=== PATIENT | male | born 1950 | race Caucasian/White ===

== ENCOUNTER → 2019-02-06 10:55 | Outpatient (CLI) | payer MEDICARE ==
--- NOTE | ~2019-02-06 | ST ---
PATIENT:INDIA AGGARAWL MEDICAL RECORD: [id number] SEX: M LOCATION:[facility] ORDER #: ADMISSION DATE: 02/06/19 AGE OF PATIENT: 68 REFERRING PHYSICIAN: INTERPRETING PHYSICIAN: TEODORO MATTHEWS MD DATE OF SERVICE: 02/06/2019 INDICATION: Angina, coronary artery disease, abnormal ECG, diabetes, hypertension and hyperlipidemia. The patient was exercised on standard Khurram protocol for 8-1/2 minutes achieving greater than 85% max target heart rate response with 31 mCi of sestamibi injected at peak stress, 10 mCi used previously for rest images. FINDINGS: Gated SPECT reveals preserved ejection fraction at 64% with good wall motioning and thickening and brightening throughout all segments. SPECT imaging Cardiolite was used as myocardial fusion agent. There is reversibility throughout the inferior and apical segments. This is the basal, mid apical inferior segments as well as the apex itself. The degree of reversibility is moderate. The amount of myocardial involved is moderate. OVERALL IMPRESSION: 1. This is an abnormal nuclear stress test with reversibility in for apically. 2. Gated SPECT reveals preserved ejection fraction of greater than 60%. In this patient with ongoing symptomatology, the current scan does suggest the presence of hemodynamically significant coronary artery disease. We would proceed with coronary angiography as followup study. TRANSINT:[id number] Voice Confirmation ID: [id number] DOCUMENT ID: [id number] TEODORO MATTHEWS MD CC: TAYLOR GREEN [id number] DICTATION DATE: 02/08/19 1607 PROFESSIONAL SKATER: 02/09/19 0915 DEP CLI 02/06/19 [place] [address]
== END | disposition home or self-care (01) ==
LOC: D.HCCARDIO 10:55
PROVIDERS: ATTEND Internal Medicine Interventional Cardiology
DX: I20.9 Angina pectoris, unspecified (principal)

== ENCOUNTER 2019-03-21 11:33 | Outpatient (CLI) | payer MEDICARE, OTHER ==
--- NOTE | ~2019-03-21 | HEMODYNAMI ---
PATIENT:INDIA AGGARWAL MEDICAL RECORD: [id number] : 54 LOCATION:[facility] ADMISSION DATE: 03/21/19 Generatedon:03/21/201913:57 Patient name: INDIA AGGARWAL Patient #: [id number] SSN: DO B: 1950 Date of study: 03/21/2019 Page: Of Hemodynamic Procedure Report Patient Data Patient Demographics Procedure consent was obtained First Name: INDIA Gender: Male Last Name: ALESSIA : 1950 [facility] Initial: LINDA Age: 68 year(s) Patient #: [id number] Race: Unknown Additional ID: [id number] Contact details [address]: [address] [place] [address] State: [place] City: [place] Zip code: [address] Past Medical History Allergies Allergen Reaction Date Comments Reported Other allergy 03/21/2019 PRENIDSONE Admission Admission Data Admission Date: 03/21/2019 Admission Time: 11:33 Procedure Procedure Types Cath Procedure Diagnostic Procedure LHC LHC w/Coronaries Procedure Description Procedure Date Procedure Date: 03/21/2019 Procedure Start Time: 13:47 Procedure End Time: 13:56 Procedure Staff Name Function Akhil Marlow MD Performing Physician Julian Rabago RT Monitor Angela Fan RT Scrub Liliane Brand RN Nurse Madi Lorenzo 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 Procedure Data Cath Procedure Fluoroscopy Diagnostic fluoroscopy Total fluoroscopy Time: 1.3 time: 1.3 min min Diagnostic fluoroscopy Total fluoroscopy dose: 433 dose: 433 mGy mGy Contrast Material Contrast Material Type Amount (ml) Isovue 300 35 Entry Location Entry Primary Successful Side Size Upsize Upsize Entry Closure Renteria ccessful Closure Location (Fr) 1 (Fr) 2 (Fr) Remarks Device Remarks Radial Right 6 Fr Mechanical artery Short Compression Estimated blood loss: 5 ml Diagnostic catheters Device Type Used For End Catheter Placement DIAGNOSTIC Elgin 110cm 5 Procedure Fr catheter ([id number]) Procedure Complications No complications Procedure Medications Medication Administration Route Dosage Oxygen etCO2 Nasal cannula 2 l/min Lidocaine 2% added to field 20 Heparin Flush Bag added to field 2 bags (1000units/500ml NS) 0.9% NaCl I.V. 100 ml/hr Versed I.V. 2 mg Fentanyl I.V. 100 mcg Radial Cocktail I.A. 1 syringe (Verapomil 2mg/Nitro 400mcg/Heparin 1500units) Versed I.V. 2 mg Fentanyl I.V. 100 mcg Versed I.V. 0.5 mg Fentanyl I.V. 25 mcg Hemodynamics Rest Heart Rate: 70 (bpm) Pressure Samples Time Site Value (mmHg) Purpose Heart Use Rate(bpm) 13:49 LV 98/19,20 Snapshot 89 13:49 AO 97/75(86) Pullback 79 13:49 LV 98/12,15 Pullback 79 Gradients Valve Time Site 1 Site 2 Mean SEP/DFP Peak To Heart Use (mmHg) (sec/min) Peak Rate (mmHg) (bpm) Aortic 13:49 LV AO 1 10 1 79 98/12,15 97/75(86) Calculations Valve P-P Mean Valve Index Valve Source Name Gradient Area Flow (cm2) Aortic 1 1 1 1 Snapshots Pre Cath Intra NCS Post Cath Vital Signs Time Heart Resp SPO2 etCO2 NIBP (mmHg) Rhythm Pain Sedation Rate (ipm) (%) (mmHg) Status Level (bpm) 13:38:21 69 17 97 32.7 123/85(106) NSR 0 (11) 10(A) , No pain 13:42:23 72 11 100 35.6 136/94(108) NSR 0 (11) 10(A) , No pain 13:46:27 76 13 95 0 107/84(98) NSR 0 (11) 9(A) , No pain 13:51:17 75 12 96 34.9 110/85(105) NSR 0 (11) 9(A) , No pain 13:55:17 75 14 96 40.8 104/88(100) NSR 0 (11) 10(A) , No pain Medications Time Medication Route Dose Verified Delivered Reason Notes Effectiveness by by 13:26:59 Oxygen etCO2 2 l/min Akhil Momin used for Nasal [facility] 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 100 Akhil Momin Per ml/hr St Stanislav alvarez MD 13:43:23 Versed I.V. 2 mg Akhil Momin for sedation [facility] Stanislav Brand RN, MD 13:43:29 Fentanyl I.V. 100 mcg Akhil Momin for sedation [facility] Stanislav Brand RN, MD 13:48:12 Radial Cocktail I.A. 1 Akhil Landaverde for (Verapomil syringe [facility] vasodilation 2mg/Nitro MD LEW 400mcg/Heparin 1500units) 13:48:19 Versed I.V. 2 mg Akhil Momin for sedation [facility] Stanislav Brand RN, MD 13:48:22 Fentanyl I.V. 100 mcg Akhil Momin for sedation [facility] Stanislav Brand RN, MD 13:52:24 Versed I.V. 0.5 mg Akhil Momin for sedation [facility] Stanislav Brand RN, MD 13:52:29 Fentanyl I.V. 25 mcg Akhil Momin for sedation [facility] Stanislav Brand RN, MD Procedure Log Time Note 13:14:07 Signed procedure consent form obtained from patient. 13:14:08 Diagnostic Cath status Elective 13:14:09 Time tracking: Regular hours (M-F 7:00 - 5:00) 13:14:14 Plan of Care:Hemodynamics will remain stable., Cardiac rhythm will remain stable., Comfort level will be maintained., Respiratory function will remain adequate., Patient/ family verbilizes understanding of procedure., Procedure tolerated without complication., Recovers from procedure without complications.. 13:14:21 H&P Date Dictated: 03/06/2019 Within 30 days and on chart., H&P Addendum completed by physician on day of procedure. (MUST COMPLETE FOR ALL OUTPATIENTS). 13:14:38 Patient allergic to Other allergyPRENIDSONE 13:20:46 Madi Lorenzo RT(R) sent for patient. Start room use. 13:26:59 Oxygen 2 l/min etCO2 Nasal cannula was administered by Liliane Brand RN; used for procedure; 13:27:06 Lidocaine 2% 20ml vial added to field was administered by Akhil Marlow MD; for local anesthetic; 13:27:13 Heparin Flush Bag (1000units/500ml NS) 2 bags added to field was administered by Akhil Marlow MD; used for procedure; 13:27:21 0.9% NaCl 100 ml/hr I.V. was administered by Liliane Brand RN; Per physician; 13:28:08 Patient received from Pre/Post Procedure Room to CCL 2 Alert and oriented. Tansferred to table in Supine position. 13:28:09 Warm blankets applied, and moy hugger turned on for patient comfort. 13:28:10 Correct patient and procedure confirmed by team. 13:28:10 ECG and BP/O2 sat monitors applied to patient. 13:37:20 Vital chart was started 13:38:24 Baseline sample Acquired. 13:38:27 Rhythm: sinus rhythm 13:38:28 Full Disclosure recording started 13:38:29 Pre-procedure instructions explained to patient. 13:38:29 Pre-op teaching completed and patient verbalized understanding. 13:38:32 Family in waiting room. 13:38:34 Patient NPO since Midnight. 13:38:36 Is the patient allergic to Iodine/contrast media? No. 13:38:40 Is patient on blood thinner?No 13:38:45 Patient diabetic? Yes. 13:38:46 If diabetic: On Metformin? Yes 13:38:52 If on Metformin: Last Dose? 03/20/2019 13:39:13 ----Pre-sedation anethsthesia assessment.---- 13:39:29 Previous problem with sedation/anesthesia? No ? 13:39:30 Snore? Yes 13:39:32 Sleep apnea? No 13:39:33 Deviated septum? No 13:39:34 Opens mouth fully? No 13:39:35 Sticks out tongue? Yes 13:39:37 Airway obstruction? No ? 13:39:39 Dentures? No ? 13:39:41 Pre procedure: right dorsailis pedis pulse 2+ Normal; easily identifiable; not easily obliterated 13:39:47 Modified Kaushal's test Ulnar < 7 seconds 13:39:49 Patient pain scale 0/10 ?. 13:39:52 IV patent on arrival in left antecubital with 0.9% NaCl at [facility]. 13:39:57 Lab results completed and on chart. 13:40:00 Right Radial & Right Groin area was prepped with chlora-prep and draped in sterile fashion 13:40:01 Alarms reviewed by R. N. 13:40:01 Sharps counted by scrub and verified by R.N. 13:40:02 Physician arrived 13:42:55 --------ALL STOP TIME OUT------ 13:42:55 Final Timeout: patient, procedure, and site verified with staff and physician. All members of the team are in agreement. 13:42:57 Right Radial & Right Groin site verified by team. 13:42:59 Maximum allowable Isovue 300 dose 300ml. Physician notified. (300ml for normal creatinines. For patients with creatinine of 1.7 or higher multiply weight(kg) x 5 divided by creatinine.) 13:43:03 Fire Safety Assessment: A--An alcohol-based skin anteseptic being used preoperatively., C--Open oxygen or nitrous oxide is being used., D--An ESU, laser, or fiber-optic light is being used. 13:43:05 Physical assessment completed. ASA score P 2 - A patient with mild systemic disease as per Akhil Marlow MD. 13:43:08 Sedation plan: IV Moderate Sedation Medication:Versed, Fentanyl 13:43:10 Use device set Radial Dx or PCI 13:43:11 ACIST Syringe (17434) opened to sterile field. 13:43:11 Medline Cath Pack ([id number]) opened to sterile field. 13:43:12 Bag Decanter () opened to sterile field. 13:43:12 ACIST Hand Control (64501) opened to sterile field. 13:43:13 ACIST Manifold (50196) opened to sterile field. 13:43:13 Tegaderm 4 x 4 (1626W) opened to sterile field. 13:43:14 MBrace Wrist Support ([id number]) opened to sterile field. 13:43:16 DIAGNOSTIC WIRE .035 260cm J wire (860286) opened to sterile field. 13:43:17 SHEATH 6FR Slender (49-6923) opened to sterile field. 13:43:23 Versed 2 mg I.V. was administered by Liliane Brand RN; for sedation; 13:43:29 Fentanyl 100 mcg I.V. was administered by Liliane Brand RN; for sedation; 13:47:16 Procedure started. 13:47:17 Zero performed for pressure channel P1 13:47:22 Local anesthetic to right radial artery with Lidocaine 2% by Akhil Marlow MD.INITIAL ACCESS ONLY 13:47:29 A 6 Fr Short sheath was inserted into the Right Radial artery 13:47:52 A DIAGNOSTIC Elgin 110cm 5 Fr catheter ([id number]) was advanced over the wire and used for Procedure. 13:48:12 Radial Cocktail (Verapomil 2mg/Nitro 400mcg/Heparin 1500units) 1 syringe I.A. was administered by Akhil Marlow MD; for vasodilation; 13:48:19 Versed 2 mg I.V. was administered by Liliane Brand RN; for sedation; :48:22 Fentanyl 100 mcg I.V. was administered by Liliane Brand RN; for sedation; 13:49:23 LV gram done using MASSEY 13:49:28 Injector settings: Ml/sec: 5, Volume: 15, 13:49:36 LV hemodynamics recorded. 13:49:40 EF : 50 % 13:49:47 LCA angiography performed. 13:51:33 RCA angiography performed. 13:52:09 Catheter removed. 13:52:24 Versed 0.5 mg I.V. was administered by Liliane Brand RN; for sedation; 13:52:29 Fentanyl 25 mcg I.V. was administered by Liliane Brand RN; for sedation; 13:52:56 TR BAND Standard ([id number]) opened to sterile field. 13:53:09 Sheath removed intact; hemostasis achieved with Mechanical Compression to the Right Radial artery. 13:53:11 Procedure ended.(Physican Out) 13:53:19 Fluoroscopy time 01.30 minutes. 13:53:22 Fluoroscopy dose: 433 mGy 13:53:22 Flurop Dose total: 433 13:53:24 Contrast amount:Isovue 300 35ml. 13:53:39 Sharps counted by scrub and verified by R.N. 13:53:43 TR band inflated with 12cc of air. 13:53:44 Insertion/operative site no bleeding no hematoma. 13:53:49 Post right radial artery:stable, soft, clean and dry 13:53:50 Post Procedure Pulses reassessed and unchanged 13:55:31 Post-procedure physical assessment completed. ASA score P 2 - A patient with mild systemic disease as per Akhil Marlow MD. 13:55:54 Post procedure rhythm: sinus rhythm 13:55:58 Estimated blood loss: 5 ml 13:56:00 Post procedure instruction explained to patient.Patient verbalizes understanding. 13:56:00 Patient needs reinforcement of post procedure teaching. 13:56:28 Procedure and supply charges have been captured, reviewed, submitted and are correct. 13:56:30 Procedure Complication : No complications 13:56:31 Vital chart was stopped 13:56:32 See physician's report for complete and final results. 13:56:33 Report given to Pre/Post Procedure Room. 13:56:35 Patient transfered to Pre/Post Procedure Room with Stretcher. 13:56:36 Procedure ended. 13:56:36 Full Disclosure recording stopped 13:56:40 End room use (Document Last) Device Usage Item Name Manufacture Quantity Catalog Hospital Part Current Minimal Lot# / Number Charge Number Stock Stock Serial# Code ACIST Acist 1 07701 911253 806149 807190 20 Syringe Medical (20029) Systems Inc Medline Medline 1 [id number] 556631 10196 282873 5 Cath Pack ([id number]) Bag Microtek 1 2001S 805625 49503 650253 5 Decanter Medical Inc. (2001S) ACIST Hand Acist 1 69057 240539 109982 114059 5 Control Medical (74489) Systems Inc ACIST Acist 1 96689 198558 529766 092222 5 Manifold Medical (10247) Systems Inc Tegaderm 4 3M 1 1626W 332247 330683 834279 5 x 4 (1626W) MBrace Advanced 1 140-0250-00 015263 16298 833501 5 Wrist Vascular Support Dynamics ([id number]) DIAGNOSTIC [facility] [place] 1 778778 229095 053001 062958 30 WIRE .035 260cm J wire (775681) SHEATH 6FR Terumo 1 [id number] 052320 687868 150751 5 Slender (80-1060) DIAGNOSTIC Terumo 1 40-5267 139689 981847 590764 5 Elgin 110cm 5 Fr catheter (230154) TR BAND Terumo 1 SOL79-SOX 534603 937253 080765 40 Standard ([id number]) Signature Audit Louise Stage Time Signature Unsigned Intra-Procedure 03/21/2019 Julian Rabago 1:57:07 PM RT(R) Signatures Monitor : Julian Rabago RT Signature : Date : Time : [address] [place] [address]
[2019-03-21] MEDS ORDERED: BASAGLAR K100 UNIT/1 SC (11:58)
[2019-03-21] MEDS ORDERED: PRINIVIL10 MG PO (11:59)
[2019-03-21] MEDS ORDERED: KLONOPIN1 MG PO (11:59)
[2019-03-21 12:09] VITALS: BP 129/85; BMI 27.9
[2019-03-21] MEDS ORDERED: AMBIEN10 MG PO (12:18)
[2019-03-21] MEDS ORDERED: COREG12.5 MG PO (12:18)
[2019-03-21] MEDS ORDERED: PLAVIX75 MG PO (12:19)
[2019-03-21] MEDS ORDERED: CRESTOR5 MG PO (12:19)
[2019-03-21] MEDS ORDERED: BENTYL10 MG PO (12:20)
[2019-03-21] MEDS ORDERED: FISH OIL 1,0001 CA1 PO (12:20)
[2019-03-21] MEDS ORDERED: GLIPIZIDE10 MG PO (12:20)
[2019-03-21] MEDS ORDERED: GLUCOPHAGE500 MG PO (12:21)
[2019-03-21 12:30] LABS: ANION GAP 12.1 mmol/L (8-16); CALCIUM 8.7 mg/dL (8.5-10.1); CARBON DIOXIDE 25.5 mmol/L (21.0-32.0); CREATININE - SERUM 1.1 mg/dL (0.6-1.3); POTASSIUM - SERUM 3.6 mmol/L (3.5-5.1)
[2019-03-21 12:47] LABS: BASOPHILS 0.2 % (0-2); EOSINOPHILS 2.3 % (0-7); HEMATOCRIT 41.8 % (42.0-54.0); HEMOGLOBIN 15.5 g/dL (13.5-17.5); LYMPHOCYTES 30.6 % (15-50); MCH 33.3 pg (26.0-34.0); MCHC 37.1 g/dL (31.0-37.0); MCV 89.7 fL (80.0-100.0); MEAN PLATELET VOLUME 11.6 fL (7.4-10.4); MONOCYTES 5.3 % (2-11); NEUTROPHILS 61.6 % (40-80); PLATELET COUNT 100 10x3/uL (130-400); RBC 4.66 10x6/uL (4.20-6.10); RDW 12.2 % (11.5-14.5); WBC 4.4 10x3/uL (4.8-10.8)
--- NOTE | 2019-03-21 14:10 | NUR ---
PATIENT RETURNED TO [facility]. VSS ON CM. FAMILY PRESENT AT BEDSIDE, PHYSICIAN AT BEDSIDE TO UPDATE PATIENT AND FAMILY. NO C/O PAIN, NUMBNESS, OR TINGLING.
--- NOTE | 2019-03-21 14:24 | NUR ---
PATIENT INTERMITTENTLY RESTING, VSS ON ROOM AIR. RIGHT TR BAND IN PLACE, NO S/S OF BLEEDING OR HEMATOMA. NO C/O PAIN, NUMBNESS, OR TINGLING. TOLERATING PO FLUIDS, NO N/V.
--- NOTE | 2019-03-21 14:55 | NUR ---
PATIENT AWAKE, SITTING UP IN BED. VSS ON ROOM AIR. NO C/O PAIN, NUMBNESS, OR TINGLING. FINISHED SANDWICH, NO N/V. BEGIN AIR REMOVAL PROTOCOL FOR RIGHT RADIAL TR BAND, NO S/S OF BLEEDING OR HEMATOMA.
--- NOTE | 2019-03-21 15:25 | NUR ---
4CC OF AIR REMOVED FROM TR BAND, NO S/S OF BLEEDING OR HEAMTOMA. DRESSING APPLIED TO RIGHT RADIAL SITE. VSS ON ROOM AIR. NO C/O PAIN, NUMBNESS OR TINGLING. IV REMOVED.
--- NOTE | 2019-03-21 15:28 | NUR ---
NORCO 10 GIVEN PER ORDER FOR BACK PAIN. PT TOLERATING FLUIDS W/O NAUSEA. R GROIN SOFT, DRESSING CDI NO BLEEDING OR HEMATOMA NOTED. CALL LIGHT IN REACH AND AT BEDSIDE.
--- NOTE | 2019-03-21 15:45 | NUR ---
EDUCATION REGARDING DISCHARGE INSTRUCTTIONS GIVEN TO PATIENT AND DAUGHTER, ALL QUESTIONS ANSWERED. VSS ON ROOM AIR. RIGHT RADIAL DRESSING IS CDI, NO S/S OF BLEEDING OR HEMATOMA.
--- NOTE | 2019-03-21 15:50 | NUR ---
PATIENT INFORMED OF CARDIOTHORACIC FOLLOW UP, GIVEN BOOKLET OF INFORMATION AND DR. GUPTA'S CARD.
--- NOTE | 2019-03-21 15:55 | NUR ---
PATIENT TRANSPORTED VIA WHEELCHAIR TO CAR WITH FAMILY DRIVING, ALL BELONGINGS SENT WITH PATIENT.
--- NOTE | 2019-03-26 08:49 | OP ---
PATIENT NAME: INDIA AGGARWAL MEDICAL RECORD: [id number] :54 LOCATION:D.CAT ADMISSION DATE: SURGEON: JOE BRADEN MD DATE OF OPERATION: 03/21/2019 PROCEDURES: Left heart catheterization, selective coronary angiography, right radial approach. CATHETERS: [place] catheter, radial sheath. The procedure was well tolerated. The patient returned to hurd. Sheath was removed. TR band was placed. FINDINGS: Left ventriculography in 30-degree MASSEY view: LV appears to be normal. Wall motion and LV function 50%. CORONARY ANATOMY: LEFT MAIN: Left main is free of disease. LAD: Has severe diffuse in-stent re-stenosis up to 90% or better at his greatest portion with good target distally. This does involve the first diagonal, which has about 80% stenosis with good target distally. RIGHT CORONARY ARTERY: Severely diffusely diseased at 80% to 90% most critical, better than 90% at the midportion with good target distally. IMPRESSION: Multivessel coronary artery disease, severe diffuse disease, best long-term revascularization would best be served by a coronary bypass grafting. CT surgery consulted for that purpose. TRANSINT:[id number] Voice Confirmation ID: [id number] DOCUMENT ID: [id number] JOE BRADEN MD at 0849 CC: [id number] DICTATION DATE: 03/21/19 1359 CASING TESTER: 03/21/19 1829 DEP CLI 03/21/19 [place] [address]
== END 2019-03-21 15:55 ==
LOC: D.CATH 11:33
PROVIDERS: ATTEND Internal Medicine Interventional Cardiology
DX: I25.119 Atherosclerotic heart disease of native coronary artery with unspecified angina pectoris (principal); T82.855A Stenosis of coronary artery stent, initial encounter; Z01.812 Encounter for preprocedural laboratory examination

== ENCOUNTER 2019-04-11 11:46 | Outpatient (CLI) | payer MEDICARE, OTHER ==
[~2019-04-11] VITALS: Ht 180.3 cm; Wt 90.9 kg
--- NOTE | ~2019-04-11 | OP ---
PATIENT NAME: INDIA AGGARWAL MEDICAL RECORD: [id number] :54 LOCATION:D.CAT ADMISSION DATE: SURGEON: JOE BRADEN MD DATE OF OPERATION: 04/11/2019 PROCEDURE: PTCA and stent to LAD. FINDINGS: After a 6-Croatian sheath was placed in the right femoral artery, XB LAD guide catheter provided good guide catheter support followed by a 300 cm Whisper wire placed across the severely diffusely diseased LAD down this portion of the vessel. Pre-deployment balloon was a 3.0 x 20 mm Kenedy balloon up and down the long stenosis. Stents were then placed in the following fashion; a 3 5 x 38 and a 3.5 x 30, both Ramirez drug-eluting stents up to 14 atmospheres. Final angiography shows excellent resolution with still one area of significant residual; therefore, a 3.5 noncompliant balloon was placed in this area and inflated up to 20 atmospheres for 45 seconds. Final angiography shows excellent resolution of 90+ percent stenosis with no significant residual. LISA flow was 3 throughout the procedure. Sheath was closed with ExoSeal device. TRANSINT:[id number] Voice Confirmation ID: [id number] DOCUMENT ID: [id number] JOE BRADEN MD CC: [id number] DICTATION DATE: 04/11/19 1511 REPLANTER: 04/11/19 1823 [facility] [address] [place] [address]
--- NOTE | ~2019-04-11 | HEMODYNAMI ---
PATIENT:INDIA AGGARWAL MEDICAL RECORD: [id number] : 54 LOCATION:D.CAT ADMISSION DATE: 04/11/19 Generatedon:04/11/201915:12 Patient name: INDIA AGGARWAL Patient #: [id number] SSN: DO B: 1950 Date of study: 04/11/2019 Page: Of Hemodynamic Procedure Report Patient Data Patient Demographics Procedure consent was obtained First Name: INDIA Gender: Male Last Name: ALESSIA : 1950 [facility] Initial: LINDA Age: 68 year(s) Patient #: [id number] Race: Unknown Additional ID: [id number] Contact details Address: [address] [place] [address] State: [place] City: [place] Zip code: [address] Past Medical History Allergies Allergen Reaction Date Comments Reported Other allergy 03/21/2019 PRENIDSONE Admission Admission Data Admission Date: 04/11/2019 Admission Time: 11:46 Procedure Procedure Types Cath Procedure Diagnostic Procedure Sedation Charges Moderate Sedation up to 15 minutes PCI Procedure Coronary Stent Coronary Stent Initial Procedure Description Procedure Date Procedure Date: 04/11/2019 Procedure Start Time: 14:45 Procedure End Time: 15:10 Procedure Staff Name Function Akhil Marlow MD Performing Physician Angela Fan RT Monitor Suzy Thakkar RT Scrub Haley Anderson RN Nurse Procedure Data Cath Procedure Fluoroscopy Diagnostic fluoroscopy Total fluoroscopy Time: 8.3 time: 8.3 min min Diagnostic fluoroscopy Total fluoroscopy dose: 980 dose: 980 mGy mGy Contrast Material Contrast Material Type Amount (ml) Isovue 300 79 Entry Location Entry Primary Successful Side Size Upsize Upsize Entry Closure Succes sful Closure Location (Fr) 1 (Fr) 2 (Fr) Remarks Device Remarks Femoral Right 6 Fr Exoseal artery Short Estimated blood loss: 10 ml Procedure Complications No complications Procedure Medications Medication Administration Route Dosage 0.9% NaCl I.V. 100 ml/hr Oxygen etCO2 Nasal cannula 2 l/min Lidocaine 2% added to field 20 Heparin Flush Bag added to field 2 bags (1000units/500ml NS) Versed I.V. 2 mg Fentanyl I.V. 50 mcg Versed I.V. 2 mg Fentanyl I.V. 50 mcg Versed I.V. 2 mg Fentanyl I.V. 50 mcg Heparin Bolus I.V. 5000 units Fentanyl I.V. 50 mcg Versed I.V. 2 mg Hemodynamics Rest Heart Rate: 74 (bpm) Snapshots Pre Cath Intra NCS Post Cath Vital Signs Time Heart Resp SPO2 etCO2 NIBP (mmHg) Rhythm Pain Sedation Rate (ipm) (%) (mmHg) Status Level (bpm) 14:20:38 73 10 97 32.2 142/87(109) NSR 0 (11) 10(A) , No pain 14:24:54 75 12 91 26.1 121/83(102) NSR 0 (11) 10(A) , No pain 14:29:10 73 10 78 27.8 126/84(105) NSR 0 (11) 10(A) , No pain 14:33:24 74 11 97 35.9 136/88(108) NSR 0 (11) 10(A) , No pain 14:37:40 83 16 98 31.4 136/93(114) NSR 0 (11) 10(A) , No pain 14:41:52 75 19 96 35.2 122/89(98) NSR 0 (11) 10(A) , No pain 14:46:08 82 15 97 36.6 129/79(113) NSR 0 (11) 10(A) , No pain 14:50:24 77 18 95 37.4 126/87(103) NSR 0 (11) 10(A) , No pain 14:54:40 80 10 95 39.6 130/80(112) NSR 0 (11) 9(A) , No pain 14:58:54 80 16 95 40.4 125/83(115) NSR 0 (11) 9(A) , No pain 15:03:10 81 18 96 37.4 124/82(108) NSR 0 (11) 10(A) , No pain 15:07:24 67 10 96 44.1 123/86(105) NSR 0 (11) 10(A) , No pain Medications Time Medication Route Dose Verified Delivered Reason Notes Effectiveness by by 14:27:51 0.9% NaCl I.V. 100 Akhil Haley used for ml/hr [place] Justin procedure MD JO 14:27:59 Oxygen etCO2 2 Akhil Haley used for Nasal l/min [place] Justin procedure cannula MD JO 14:28:03 Lidocaine 2% added 20ml Akhil Hardyory for local to vial [facility] anesthetic field MD LEW 14:28:07 Heparin Flush added 2 Akhil Akhil used for Bag to bags [facility] procedure (1000units/500ml field MD LEW NS) 14:37:40 Versed I.V. 2 mg Akhil Haley for sedation [facility] MD, RN 14:37:45 Fentanyl I.V. 50 Akhil Haley for sedation mcg [facility] Anderson MD, RN 14:42:22 Versed I.V. 2 mg Akhil Haley for sedation [facility] MD, RN 14:42:33 Fentanyl I.V. 50 Akhil Haley for sedation mcg [facility]av Anderson MD, RN 14:47:05 Fentanyl I.V. 50 Akhil Haley for sedation mcg [facility] Anderson MD, RN 14:47:40 Versed I.V. 2 mg Akhil Haley for sedation [facility] MD, RN 14:50:35 Heparin Bolus I.V. 5000 Akhil Haley for verif ied units [facility] anticoagulation with Dr. MD OJ Oel[place]in 14:52:21 Versed I.V. 2 mg Akhil Haley for sedation [facility] MD, RN 14:52:43 Fentanyl I.V. 50 Akhil Haley for sedation [facility]av Anderson MD financial sales advisor Log Time Note 13:41:05 Informed consent obtained and on chart 13:41:08 Diagnostic Cath Status : Elective 13:41:29 Time tracking: Regular hours (M-F 7:00 - 5:00) 13:41:36 Plan of Care:Hemodynamics will remain stable., Cardiac rhythm will remain stable., Comfort level will be maintained., Respiratory function will remain adequate., Patient/ family verbilizes understanding of procedure., Procedure tolerated without complication., Recovers from procedure without complications.. 14:08:51 Haley Anderson RN sent for patient. Start room use. 14:14:21 Patient received from Pre/Post Procedure Room to CCL 1 Alert and oriented. Tansferred to table in Supine position. 14:14:22 Warm blankets applied, and moy hugger turned on for patient comfort. 14:14:22 Correct patient and procedure confirmed by team. 14:14:23 ECG and BP/O2 sat monitors applied to patient. 14:19:21 Vital chart was started 14:19:22 Baseline sample Acquired. 14:19:27 Rhythm: sinus rhythm 14:19:29 Full Disclosure recording started 14:19:35 H&P Date Dictated: 04/11/2019 Within 30 days and on chart., H&P Addendum completed by physician on day of procedure. (MUST COMPLETE FOR ALL OUTPATIENTS). 14:19:36 Pre-procedure instructions explained to patient. 14:19:37 Pre-op teaching completed and patient verbalized understanding. 14:19:38 Family in waiting room. 14:19:39 Patient NPO since Midnight. 14:19:41 Is the patient allergic to Iodine/contrast media? No. 14:19:43 Was the patient premedicated? No 14:19:43 Is patient on blood thinner?Yes 14:19:46 ACC The patient was administered the following blood thiners within the last 24 hours: ACCPlavix 14:19:48 Patient diabetic? Yes. 14:19:48 If diabetic: On Metformin? Yes 14:20:00 If on Metformin: Last Dose? 04/06/2019 14:20:11 Previous problem with sedation/anesthesia? No ? 14:20:34 Snore? Yes 14:20:35 Sleep apnea? Yes 14:20:36 Deviated septum? No 14:20:37 Opens mouth fully? Yes 14:20:37 Sticks out tongue? Yes 14:20:39 Airway obstruction? No ? 14:20:42 Dentures? No ? 14:20:47 Pre procedure: right dorsailis pedis pulse 2+ Normal; easily identifiable; not easily obliterated 14:20:50 Pre procedure: left dorsailis pedis pulse 2+ Normal; easily identifiable; not easily obliterated 14:20:53 Patient pain scale 0/10 ?. 14:21:06 IV patent on arrival in left forearm with 0.9% NaCl at [facility]. 14:21:10 Lab results completed and on chart. 14:21:20 Right groin area was prepped with chlora-prep and draped in sterile fashion 14:21:21 Alarms reviewed by R. N. 14:21:22 Sharps counted by scrub and verified by R.N. 14:24:55 Use device set CATH PACK 14:24:57 ACIST Syringe (11421) opened to sterile field. 14:24:57 ACIST Hand Control (71258) opened to sterile field. 14:24:57 ACIST Manifold (46155) opened to sterile field. 14:24:58 Bag Decanter (2002S) opened to sterile field. 14:24:58 Medline Cath Pack ([id number]) opened to sterile field. 14:24:59 DIAGNOSTIC WIRE .035 260cm J wire (324326) opened to sterile field. 14:25:10 SHEATH 6FR Lak[place] (OKE197) opened to sterile field. 14:25:11 INFLATOR Merit BasixCompak (MM1322) opened to sterile field. 14:25:11 WHISPER 300cm guide wire ([id number]) opened to sterile field. 14:27:51 0.9% NaCl 100 ml/hr I.V. was administered by Haley Anderson RN; used for procedure; 14:27:59 Oxygen 2 l/min etCO2 Nasal cannula was administered by Haley Anderson RN; used for procedure; 14:28:03 Lidocaine 2% 20ml vial added to field was administered by Akhil Marlow MD; for local anesthetic; 14:28:07 Heparin Flush Bag (1000units/500ml NS) 2 bags added to field was administered by Akhil Marlow MD; used for procedure; 14:28:51 Baseline sample Acquired. 14:29:06 GUIDE 6FR XBLAD 3.5 catheter ([id number]) opened to sterile field. 14:32:44 Zero performed for pressure channel P1 14:33:19 Zero performed for pressure channel P1 14:36:42 --------ALL STOP TIME OUT------ 14:36:43 Final Timeout: patient, procedure, and site verified with staff and physician. All members of the team are in agreement. 14:36:44 Right groin site verified by team. 14:36:47 Maximum allowable Isovue 300 dose 300ml. Physician notified. (300ml for normal creatinines. For patients with creatinine of 1.7 or higher multiply weight(kg) x 5 divided by creatinine.) 14:36:50 Fire Safety Assessment: A--An alcohol-based skin anteseptic being used preoperatively., C--Open oxygen or nitrous oxide is being used., D--An ESU, laser, or fiber-optic light is being used. 14:36:53 Physical assessment completed. ASA score P 2 - A patient with mild systemic disease as per Akhil Marlow MD. 14:36:56 Sedation plan: IV Moderate Sedation Medication:Versed, Fentanyl 14:37:40 Versed 2 mg I.V. was administered by Haley Anderson RN; for sedation; 14:37:45 Fentanyl 50 mcg I.V. was administered by Haley Anderson RN; for sedation; 14:42:22 Versed 2 mg I.V. was administered by Haley Anderson RN; for sedation; 14:42:33 Fentanyl 50 mcg I.V. was administered by Haley Anderson RN; for sedation; 14:45:42 Procedure started. 14:45:58 Local anesthetic to right femoral artery with Lidocaine 2% by Akhil Marlow MD.INITIAL ACCESS ONLY 14:46:50 A 6 Fr Short sheath was inserted into the Right Femoral artery 14:47:05 Fentanyl 50 mcg I.V. was administered by Haley Anderson RN; for sedation; 14:47:34 Zero performed for pressure channel P1 14:47:38 Zero performed for pressure channel P1 14:47:40 Versed 2 mg I.V. was administered by Haley Anderson RN; for sedation; 14:47:47 Zero performed for pressure channel P1 14:47:52 Zero performed for pressure channel P1 14:48:02 6 Fr XBLAD 3.5 guide catheter was inserted over the wire 14:49:42 WHISPER 300 wire advanced. 14:50:35 Heparin Bolus 5000 units I.V. was administered by Haley Anderson RN; for anticoagulation; verified with Dr. Guthrie 14:51:04 Wire advanced across lesion. 14:51:53 Inflate balloon Inflation number: 1 A EMERGE OTW 3.0 x 20 balloon ([id number]) was prepped and advanced across the Mid LAD, then inflated to 10 SHEEBA for 0:15 (min:sec). 14:52:20 Inflation number: 2 The EMERGE OTW 3.0 x 20 balloon ([id number]) was reinflated across the Mid LAD, to 10 SHEEBA for 0:15 (min:sec). 14:52:21 Versed 2 mg I.V. was administered by Haley Anderson RN; for sedation; 14:52:41 Inflation number: 3 The EMERGE OTW 3.0 x 20 balloon ([id number]) was reinflated across the Mid LAD, to 10 SHEEBA for 0:15 (min:sec). 14:52:43 Fentanyl 50 mcg I.V. was administered by Haley Anderson RN; for sedation; 14:53:32 Inflation number: 4 The EMERGE OTW 3.0 x 20 balloon ([id number]) was reinflated across the Mid LAD, to 12 SHEEBA for 0:15 (min:sec). 14:53:55 Inflation number: 5 The EMERGE OTW 3.0 x 20 balloon ([id number]) was reinflated across the Mid LAD, to 12 SHEEBA for 0:15 (min:sec). 14:54:12 Balloon removed over the wire. 14:57:08 Place stent Inflation Number: 6 A YULIYA OTW 3.5 x 38 stent ([id number]) was prepped and advanced across the Mid LAD. The stent was deployed at 14 SHEEBA for 0:20 (min:sec). 14:58:25 Stent catheter was removed intact over wire. 15:00:48 Place stent Inflation Number: 7 A YULIYA OTW 3.5 x 30 stent ([id number]) was prepped and advanced across the Mid LAD. The stent was deployed at 14 SHEEBA for 0:20 (min:sec). 15:00:56 Stent catheter was removed intact over wire. 15:04:18 Inflate balloon Inflation number: 8 A NC EUPHORA 3.5 x 12 balloon ([id number]) was prepped and advanced across the Mid LAD, then inflated to 16 SHEEBA for 0:20 (min:sec). 15:04:36 Balloon removed over the wire. 15:04:51 Wire removed. 15:04:51 Guide catheter removed. 15:05:19 EXOSEAL 6Fr (EX600) opened to sterile field. 15:05:47 Sheath removed intact; hemostasis achieved with Exoseal to the Right Femoral artery. 15:05:50 Procedure ended.(Physican Out) 15:08:41 Fluoroscopy time 08.30 minutes. 15:08:46 Flurop Dose total: 980 15:08:46 Fluoroscopy dose: 980 mGy 15:08:50 Contrast amount:Isovue 300 79ml. 15:08:51 Sharps counted by scrub and verified by R.N. 15:08:54 Post-op/insertion site Right Femoral artery dressed using a 4 x 4 and Tegaderm. 15:09:02 Post-procedure physical assessment completed. ASA score P 2 - A patient with mild systemic disease as per Akhil Marlow MD. 15:09:04 Post-procedure physical assessment completed. ASA score P 3 - A patient with severe systemic disease as per Akhil Marlow MD. 15:09:08 Post procedure rhythm: sinus rhythm 15:09:12 Estimated blood loss: 10 ml 15:09:13 Post procedure instruction explained to patient.Patient verbalizes understanding. 15:09:14 Patient needs reinforcement of post procedure teaching. 15:09:48 Procedure type changed to Cath procedure, Diagnostic procedure, Sedation Charges, Moderate Sedation up to 15 minutes, PCI procedure, Coronary Stent, Coronary Stent Initial 15:10:08 Procedure and supply charges have been captured, reviewed, submitted and are correct. 15:10:10 Procedure Complication : No complications 15:10:12 Vital chart was stopped 15:10:13 See physician's report for complete and final results. 15:10:14 Report given to Pre/Post Procedure Room. 15:10:17 Patient transfered to Pre/Post Procedure Room with Bed. 15:10:18 Procedure ended. 15:10:18 Full Disclosure recording stopped 15:10:21 End room use (Document Last) Intervention Summary Intervention Notes Time ActionType Lesion and Equipment Action# Pressure Duration Attributes Used 14:51:53 Inflate Mid LAD EMERGE OTW 1 10 00:15 balloon 3.0 x 20 balloon ([id number]) 14:52:20 Reinflate Mid LAD EMERGE OTW 2 10 00:15 balloon 3.0 x 20 balloon ([id number]) 14:52:41 Reinflate Mid LAD EMERGE OTW 3 10 00:15 balloon 3.0 x 20 balloon ([id number]) 14:53:32 Reinflate Mid LAD EMERGE OTW 4 12 00:15 balloon 3.0 x 20 balloon ([id number]) 14:53:55 Reinflate Mid LAD EMERGE OTW 5 12 00:15 balloon 3.0 x 20 balloon ([id number]) 14:57:08 Place stent Mid LAD YULIYA OTW 3.5 6 14 00:20 x 38 stent ([id number]) 15:00:48 Place stent Mid LAD YULIYA OTW 3.5 7 14 00:20 x 30 stent ([id number]) 15:04:18 Inflate Mid LAD NC EUPHORA 8 16 00:20 balloon 3.5 x 12 balloon ([id number]) Device Usage Item Name Manufacture Quantity Catalog Number [facility] Lot# / Charge Number Stock Stock Serial# Code ACIST Syringe Acist 1 08372 335938 739165 753808 20 (01123) Medical Systems Inc ACIST Hand Acist 1 69025 360525 223677 811314 5 Control Medical (66774) Systems Inc ACIST Acist 1 54959 588539 653155 654645 5 Manifold Medical (46450) Systems Inc Bag Decanter Microtek 1 2001S 120162 12048 571134 5 (2001S) Medical Inc. Medline Cath Medline 1 [id number] 484736 44364 838774 5 Pack ([id number]) DIAGNOSTIC [facility] [place] 1 798238 228749 123669 231701 30 WIRE .035 260cm J wire (505268) SHEATH 6FR Terumo 1 YRG088 333858 800434 696189 40 Lakeland (PVM229) INFLATOR Merit 1 KU7625 055636 654889 559792 15 [facility] Medical BasixCompak (KE8316) WHISPER 300cm Nation 1 [id number] 801677 759150 183404 5 guide wire Vascular (3993847XA) GUIDE 6FR Cardinal 1 [id number] 891786 621103 810979 10 XBLAD 3.5 Health catheter ([id number]) EMERGE OTW Preston 1 [id number] 464102 613206 986709 5 07725616 3.0 x 20 Scientific balloon ([id number]) YULIYA OTW 3.5 Medtronic 1 [id number] 406851 4484216 884684 5 [id number] x 38 stent ([id number]) YULIYA OTW 3.5 Medtronic 1 [id number] 795027 4827937 418033 5 [id number] x 30 stent ([id number]) NC EUPHORA Medtronic 1 [id number] 978780 444992 053666 1 [id number] 3.5 x 12 balloon ([id number]) EXOSEAL 6Fr Cardinal 1 EX600 557638 538645 100504 10 (EX600) Health Signature Audit D Lo Stage Time Signature Unsigned Intra-Procedure 04/11/2019 Angela Fan 3:12:05 PM RT(R) Signatures Monitor : Angela Fan Signature : RT Date : Time : [address] [address]
[~2019-04-11 11:46] MED LIST: AMBIEN10 MG PO; BASAGLAR K100 UNIT/1 SC; BENTYL10 MG PO; COREG12.5 MG PO; CRESTOR5 MG PO; FISH OIL 1,0001 CA1 PO; GLIPIZIDE10 MG PO; GLUCOPHAGE500 MG PO; KLONOPIN1 MG PO; PLAVIX75 MG PO; PRINIVIL10 MG PO
[2019-04-11 12:34] VITALS: BP 125/78; Ht 180.3 cm; Wt 90.9 kg
[2019-04-11 13:15] LABS: BASOPHILS 0.2 % (0-2); HEMATOCRIT 43.1 % (42.0-54.0); HEMOGLOBIN 16.1 g/dL (13.5-17.5); IMMATURE GRANULOCYTES 0.2 % (0-5); LYMPHOCYTES 29.8 % (15-50); MCH 33.3 pg (26.0-34.0); MCHC 37.4 g/dL (31.0-37.0); MCV 89.2 fL (80.0-100.0); MEAN PLATELET VOLUME 11.1 fL (7.4-10.4); MONOCYTES 9.9 % (2-11); NEUTROPHILS 57.9 % (40-80); PLATELET COUNT 93 10x3/uL (130-400); RBC 4.83 10x6/uL (4.20-6.10); RDW 12.2 % (11.5-14.5); WBC 4.9 10x3/uL (4.8-10.8)
[2019-04-11 13:33] LABS: CALCIUM 9.2 mg/dL (8.5-10.1); CARBON DIOXIDE 21.1 mmol/L (21.0-32.0); CREATININE - SERUM 1.1 mg/dL (0.6-1.3); POTASSIUM - SERUM 4.1 mmol/L (3.5-5.1)
[2019-04-11 14:12] LABS: PLATELET ESTIMATE DECREASED
--- NOTE | 2019-04-11 15:35 | NUR ---
2L NC, NO RESP DISTRESS. RIGHT GROIN 6F EXOSEAL CDI, NO BLEEDING OR HEMATOMA NOTED. NO C/O NAUSEA. STATES PAIN IS 6/10 IN GROIN AREA. NOTIFIED DR BRADEN AND REC'D ORDER FOR PAIN MED. VSS. FAMILY AT BEDSIDE, CALL LIGHT WITHIN REACH.
--- NOTE | 2019-04-11 16:05 | NUR ---
RIGHT GROIN 6F EXOSEAL CDI, NO BLEEDING OR HEMATOMA NOTED. STATES PAIN IS MUCH BETTER AFTER RECIEVING PAIN MEDICATION. DENIES ANY NEEDS AT THIS TIME. VSS. WILL CONTINUE TO MONITOR.
--- NOTE | 2019-04-11 16:20 | NUR ---
RESTING QUIETLY WITH EYES CLOSED. RIGHT GROIN 6F EXOSEAL CDI, NO BLEEDING OR HEMATOMA NOTED. NO C/O AT THIS TIME. VSS. CALL LIGHT WITHIN REACH.
--- NOTE | 2019-04-11 16:51 | NUR ---
CONTINUES TO REST COMFORTABLY WITH NO C/O. RIGHT GROIN 6F EXOSEAL CDI, NO BLEEDING OR HEMATOMA NOTED. DENIES ANY NEEDS AT THIS TIME. VSS. WILL CONTINUE TO MONITOR.
--- NOTE | 2019-04-11 17:50 | NUR ---
HOB ELEVATED 30 DEGREES. RIGHT GROIN 6F EXOSEAL CDI, NO BLEEDING NOTED. SIPPING ON DRINK AND EATING SANDWICH WITH NO C/O NAUSEA. VSS. WILL CONTINUE TO MONITOR.
--- NOTE | 2019-04-11 18:35 | NUR ---
LEFT PIV D/C'D WITH CATHETER INTACT, BAND AID TO SITE. RIGHT GROIN 6F EXOSEAL CDI, NO BLEEDING NOTED. UP TO BEDSIDE TO GET DRESSED. AMBULATED TO RESTROOM.
--- NOTE | 2019-04-11 18:48 | NUR ---
DISCHARGE INSTRUCTIONS GIVEN, VERBALIZED UNDERSTANDING.
--- NOTE | 2019-04-11 18:55 | NUR ---
TAKEN OUT VIA WHEELCHAIR BY CATH SYS DIR. LEFT FACILITY WITH FAMILY AND ALL PERSONAL BELONGINGS.
== END 2019-04-11 18:55 | disposition home or self-care (01) ==
LOC: D.CATH 11:46
PROVIDERS: ATTEND Internal Medicine Interventional Cardiology
DX: I25.119 Atherosclerotic heart disease of native coronary artery with unspecified angina pectoris (principal); Z01.812 Encounter for preprocedural laboratory examination

== ENCOUNTER 2019-04-15 19:59 | Observation (INO) | payer MEDICARE, OTHER ==
[~2019-04-15] VITALS: Ht 180.3 cm; Wt 91.3 kg
[2019-04-15 20:46] LABS: ALBUMIN 3.8 g/dL (3.4-5.0); ALKALINE PHOSPHATASE 79 U/L (46-116); BILIRUBIN - TOTAL 0.57 mg/dL (0.2-1.3); CALC OSMOLALITY 276 mosm/kg (275-300); CARBON DIOXIDE 23.4 mmol/L (21.0-32.0); CHLORIDE - SERUM 97 mmol/L (98-107); CREATINE KINASE 81 UL (21-232); GLUCOSE 328 mg/dL (74-106); POTASSIUM - SERUM 3.7 mmol/L (3.5-5.1); PROTEIN - SERUM 7.4 g/dL (6.4-8.2); SODIUM 133 mmol/L (136-145); UREA NITROGEN 7 mg/dL (7-18); eGFR NON AFRICAN AMERICAN 79 mL/min (90-120)
[2019-04-15 20:47] LABS: BASOPHILS 0.4 % (0-2); EOSINOPHILS 1.6 % (0-7); HEMATOCRIT 43.4 % (42.0-54.0); HEMOGLOBIN 16.1 g/dL (13.5-17.5); IMMATURE GRANULOCYTES 0.2 % (0-5); LYMPHOCYTES 36.4 % (15-50); MCH 33.3 pg (26.0-34.0); MCHC 37.1 g/dL (31.0-37.0); MCV 89.9 fL (80.0-100.0); MEAN PLATELET VOLUME 10.8 fL (7.4-10.4); MONOCYTES 8.4 % (2-11); PLATELET COUNT 106 10x3/uL (130-400); RBC 4.83 10x6/uL (4.20-6.10); RDW 12.5 % (11.5-14.5); WBC 5.1 10x3/uL (4.8-10.8)
[2019-04-15 20:49] LABS: ALT (SGPT) 60 U/L (10-68); TROPONIN-I < 0.017 ng/mL (0.000-0.060)
[2019-04-15 20:59] VITALS: BP 137/89
[2019-04-15 21:37] VITALS: BP 128/85
--- NOTE | 2019-04-15 22:16 | NUR ---
RECEIVED FROM ER, PT IS A&O X4, PLACED ON TELEMTRY, BED IS LOW, SRX 4, CALL LIGHT IN REACH, WILL CONTINUE PLAN OF CARE
[2019-04-16 00:36] VITALS: BP 115/74
[2019-04-16 01:07] VITALS: BP 115/74; BMI 28.0
[2019-04-16 05:37] VITALS: BP 99/61
--- NOTE | 2019-04-16 07:45 | NUR ---
MORNING ROUNDS MADE. PT LAYING IN BED RESTING. DENIES PAIN AT THIS TIME. A/O X 4. UP AB DARI. BREATHING EVEN AND UNLABORED. NO EDEMA NOTED. IV TO R FA, PATENT, SL, NO REDNESS OR EDEMA NOTED. RM AIR. NORMAL SINUS ON TELE. PT HAS BEEN NPO SINCE MIDNIHGT. INFORMED PT THAT HE WILL REMAIN NPO TILL TRAINMAN MAKES ROUNDS, PT AGREES WITH POC. NO FURTHER CONCERNS AT THIS TIME. BED LOWERED AND LOCKED. CL IN REACH. WILL CTM.
[2019-04-16 08:13] VITALS: BP 108/66
[2019-04-16 09:15] VITALS: Ht 180.3 cm; Wt 91.3 kg
--- NOTE | 2019-04-16 09:51 | NUR ---
I have reviewed this patient and I concur with the Shift Assessment completed by the Licensed Practical Nurse today this shift.
--- NOTE | 2019-04-16 11:16 | NUR ---
PT OUT IN [facility] AT [facility]. PT DRESSED AND STATES "CAN YOU TAKE OUT THIS IV, THE SAID I CAN GO HOME" INFORMED PT THAT NO DC ORDERS HAVE BEEN PUT IN YET AND HE WILL HAVE TO RETURN TO HIS ROOM AND WAIT FOR HIS ORDERS AND PAPER WORK TO BE COMPLETED. PT ASKED IF HE HAD ANOTHER OPTION. INFORMED PT THAT HIS ONLY OTHER OPTION IS TO LEAVE AMA, AND DOING SO INSURANCE WOULD NOT PAY, AND THE GUEST EXPERIENCE REPRESENTATIVE WOULDNT ALLOW HIS FOLLOW UP IN A WEEK. PT AGREED TO RETURN TO HIS ROOM AND WAIT. HE DID HOWEVER REMOVE HIS TELE. NO FURTHER CONERNS AT THIS TIME.
--- NOTE | 2019-04-16 12:59 | NUR ---
DC GIVEN TO PT. IV REMOVED FROM R FA, TIP INTACT
--- NOTE | 2019-04-16 13:13 | NUR ---
PT DC HOME VIA WHEELCHAIR WITH FAMILY
--- NOTE | 2019-04-16 16:43 | MORECARE ---
CASE MANAGEMENT DISCHARGE SUMMARY PATIENT: INDIA AGGARWAL UNIT: [id number] ADM DATE: 04/15/19 AGE: 68 : 52 SEX: M ROOM/BED: D.2126 AUTHOR: DAPHNE CASAS PHYSICIAN: REFERRING PHYSICIAN: ZORAN POP MD DATE OF SERVICE: 04/16/19 Discharge Plan Patient Name: INDIA AGGARWAL [facility] [facility] 1950 Planned Disposition: Home Anticipated Discharge Date: 04/16/19 Discharge Date: 04/16/2019 Expected LOS: 1 Initial Reviewer: [email or web address] Initial Review Date: 04/16/2019 Generated: 04/16/19 5:43 pm Patient Name: INDIA AGGARWAL Page [id number] at 1643 All edits/amendments must be made on the electronic document DICTATION DATE: 04/16/191642 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
== END 2019-04-16 13:13 | disposition home or self-care (01) ==
LOC: D.ER 19:59 → D.M2 20:46 → OBSVTIME 20:46 → D.M2 04-16 13:13
PROVIDERS: Family Medicine; ADMIT Internal Medicine Nephrology; ATTEND Internal Medicine Nephrology
DX: R07.9 Chest pain, unspecified (principal); I25.119 Atherosclerotic heart disease of native coronary artery with unspecified angina pectoris; I10 Essential (primary) hypertension; E78.5 Hyperlipidemia, unspecified; E11.9 Type 2 diabetes mellitus without complications

== ENCOUNTER 2019-05-02 11:25 | Outpatient (CLI) | payer MEDICARE, OTHER ==
[~2019-05-02] VITALS: Ht 180.3 cm; Wt 90.9 kg
--- NOTE | ~2019-05-02 | HEMODYNAMI ---
PATIENT:INDIA AGGARWAL MEDICAL RECORD: [id number] : 54 LOCATION:D.CAT ADMISSION DATE: 05/02/19 Generatedon:05/02/201914:21 Patient name: INDIA AGGARWAL Patient #: [id number] SSN: DO B: 1950 Date of study: 05/02/2019 Page: Of Hemodynamic Procedure Report Patient Data Patient Demographics Procedure consent was obtained First Name: INDIA Gender: Male Last Name: ALESSIA : 1950 [facility] Initial: LINDA Age: 68 year(s) Patient #: [id number] Race: Unknown Additional ID: [id number] Contact details Address: [address] [place] [address] State: [place] City: [place] Zip code: [address] Past Medical History Allergies Allergen Reaction Date Comments Reported Other allergy 03/21/2019 PRENIDSONE Admission Admission Data Admission Date: 05/02/2019 Admission Time: 11:25 Procedure Procedure Types Cath Procedure Diagnostic Procedure LHC LHC w/Coronaries PCI Procedure Coronary Stent Coronary Stent Initial Procedure Description Procedure Date Procedure Date: 05/02/2019 Procedure Start Time: 13:49 Procedure End Time: 14:21 Procedure Staff Name Function Haley Anderson RN Nurse Suzy Thakkar RT Scrub Rohit Castrejon RT Monitor Akhil Marlow MD Performing Physician Procedure Data Cath Procedure Fluoroscopy Diagnostic fluoroscopy Total fluoroscopy Time: time: 11.3 min 11.3 min Diagnostic fluoroscopy Total fluoroscopy dose: dose: 1161 mGy 1161 mGy Contrast Material Contrast Material Type Amount (ml) Isovue 370 52 Entry Location Entry Primary Successful Side Size Upsize Upsize Entry Closure Succes sful Closure Location (Fr) 1 (Fr) 2 (Fr) Remarks Device Remarks Femoral Right 6 Fr Exoseal artery Short Estimated blood loss: 10 ml Procedure Complications No complications Procedure Medications Medication Administration Route Dosage 0.9% NaCl I.V. 100 ml/hr Oxygen etCO2 Nasal cannula 2 l/min Lidocaine 2% added to field 20 Heparin Flush Bag added to field 2 bags (1000units/500ml NS) Versed I.V. 2 mg Fentanyl I.V. 50 mcg Versed I.V. 2 mg Fentanyl I.V. 50 mcg Heparin Bolus I.V. 5000 units Versed I.V. 2 mg Fentanyl I.V. 50 mcg Versed I.V. 2 mg Fentanyl I.V. 50 mcg Hemodynamics Rest Heart Rate: 75 (bpm) Snapshots Pre Cath Intra NCS Post Cath Vital Signs Time Heart Resp SPO2 etCO2 NIBP (mmHg) Rhythm Pain Sedation Rate (ipm) (%) (mmHg) Status Level (bpm) 13:29:43 75 11 97 39 133/87(109) NSR 0 (11) 10(A) , No pain 13:33:53 73 10 97 32.7 126/88(111) NSR 0 (11) 10(A) , No pain 13:38:03 71 12 96 11.1 125/76(95) NSR 0 (11) 10(A) , No pain 13:42:11 76 13 97 30 118/77(94) NSR 0 (11) 10(A) , No pain 13:46:17 77 19 96 24.5 120/84(102) NSR 0 (11) 10(A) , No pain 13:50:25 77 12 95 20.1 123/77(97) NSR 0 (11) 10(A) , No pain 13:54:33 86 13 96 34.2 120/84(97) NSR 0 (11) 10(A) , No pain 13:58:40 76 17 94 34.2 120/75(103) NSR 0 (11) 10(A) , No pain 14:02:48 81 20 96 35.6 128/83(112) NSR 0 (11) 10(A) , No pain 14:06:56 77 15 97 36.4 133/90(112) NSR 0 (11) 10(A) , No pain 14:11:10 81 13 96 37.9 126/77(98) NSR 0 (11) 10(A) , No pain 14:15:20 84 12 97 35.6 130/79(106) NSR 0 (11) 10(A) , No pain 14:19:30 82 12 97 33.4 121/86(108) NSR 0 (11) 10(A) , No pain Medications Time Medication Route Dose Verified Delivered Reason Notes Effectiveness by by 13:30:49 0.9% NaCl I.V. 100 Akhil Haley used for ml/hr [facility] procedure MD JO 13:30:56 Oxygen etCO2 2 Akhil Haley used for Nasal l/min [facility] procedure cannula MD JO 13:31:01 Lidocaine 2% added 20ml Akhil Kota for local to vial [facility] Stanislav Dave MD anesthetic field LEW 13:31:05 Heparin Flush added 2 Akhil Kota used for Bag to bags [facility] Stanislav Dave MD procedure (1000units/500ml field LEW NS) 13:48:10 Versed I.V. 2 mg Akhil Haley for sedation [facility]isl[facility] Anderson MD, RN 13:48:16 Fentanyl I.V. 50 Akhil Haley for sedation [facility] Anderson MD RN 13:52:00 Versed I.V. 2 mg Akhil Haley for sedation [facility] Anderson MD, RN 13:52:04 Heparin Bolus I.V. 5000 Akhil Haley for verif ied units [facility] anticoagulation with Dr. LEW RN Kipp 13:52:04 Fentanyl I.V. 50 Akhil Haley for sedation mcg [facility] Stanislav Anderson MD RN 13:56:46 Versed I.V. 2 mg Akhil Haley for sedation [facility] Anderson MD RN 13:56:50 Fentanyl I.V. 50 Akhil Haley for sedation [facility] Stanisl[facility] Anderson MD RN 14:01:02 Versed I.V. 2 mg Akhil Haley for sedation [facility] MD RN 14:01:05 Fentanyl I.V. 50 Akhil Haley for sedation [facility] Stanislav Anderson MD preschool education director Log Time Note 12:43:08 Diagnostic Cath Status : Elective 13:15:56 Rohit Castrejon RT(R) sent for patient. Start room use. 13:15:58 Time tracking: Regular hours (M-F 7:00 - 5:00) 13:16:05 Plan of Care:Hemodynamics will remain stable., Cardiac rhythm will remain stable., Comfort level will be maintained., Respiratory function will remain adequate., Patient/ family verbilizes understanding of procedure., Procedure tolerated without complication., Recovers from procedure without complications.. 13:22:03 Patient received from Pre/Post Procedure Room to CCL 2 Alert and oriented. Tansferred to table in Supine position. 13:22:21 Warm blankets applied, and moy hugger turned on for patient comfort. 13:22:21 Correct patient and procedure confirmed by team. 13:22:23 Signed procedure consent form obtained from patient. 13:22:24 ECG and BP/O2 sat monitors applied to patient. 13:28:39 Vital chart was started 13:29:42 Baseline sample Acquired. 13:29:46 Rhythm: sinus rhythm 13:29:47 Full Disclosure recording started 13:29:51 H&P Date Dictated: 05/02/2019 Within 30 days and on chart., H&P Addendum completed by physician on day of procedure. (MUST COMPLETE FOR ALL OUTPATIENTS). 13:29:53 Pre-procedure instructions explained to patient. 13:29:54 Pre-op teaching completed and patient verbalized understanding. 13:29:55 Family in waiting room. 13:29:56 Patient NPO since Midnight. 13:29:59 Is the patient allergic to Iodine/contrast media? No. 13:30:00 Was the patient premedicated? No 13:30:01 Is patient on blood thinner?Yes 13:30:03 ACC The patient was administered the following blood thiners within the last 24 hours: ACCPlavix 13:30:05 Patient diabetic? Yes. 13:30:07 Previous problem with sedation/anesthesia? No ? 13:30:09 Snore? Yes 13:30:10 Sleep apnea? No 13:30:15 Deviated septum? No 13:30:16 Opens mouth fully? Yes 13:30:16 Sticks out tongue? Yes 13:30:30 If diabetic: On Metformin? Yes 13:30:46 If on Metformin: Last Dose? 04/27/2019 13:30:49 0.9% NaCl 100 ml/hr I.V. was administered by Haley Anderson RN; used for procedure; 13:30:50 Pre procedure: right dorsailis pedis pulse 2+ Normal; easily identifiable; not easily obliterated 13:30:52 Pre procedure: left dorsailis pedis pulse 2+ Normal; easily identifiable; not easily obliterated 13:30:53 Patient pain scale 0/10 ?. 13:30:56 Oxygen 2 l/min etCO2 Nasal cannula was administered by Haley Anderson RN; used for procedure; 13:30:58 IV patent on arrival in left forearm with 0.9% NaCl at [facility]. 13:31:00 Lab results completed and on chart. 13:31:01 Lidocaine 2% 20ml vial added to field was administered by Kota Dave MD; for local anesthetic; 13:31:03 Right groin area was prepped with chlora-prep and draped in sterile fashion 13:31:04 Alarms reviewed by R. N. 13:31:04 Sharps counted by scrub and verified by R.N. 13:31:05 Heparin Flush Bag (1000units/500ml NS) 2 bags added to field was administered by Kota Dave MD; used for procedure; 13:35:02 Use device set Radial Dx or PCI 13:35:04 Use device set SAMPSON PCI 13:35:08 Tegaderm 4 x 4 (1626W) opened to sterile field. 13:35:09 ACIST Manifold (07786) opened to sterile field. 13:35:10 ACIST Hand Control (51901) opened to sterile field. 13:35:11 Medline Cath Pack ([id number]) opened to sterile field. 13:35:12 ACIST Syringe (29163) opened to sterile field. 13:35:13 Bag Decanter (2002S) opened to sterile field. 13:45:33 GUIDE 6FR HS II SH catheter ([id number]) opened to sterile field. 13:45:34 SHEATH 6FR [place] (FDH356) opened to sterile field. 13:46:14 INFLATOR Merit BasixCompak (ZL8334) opened to sterile field. 13:47:35 --------ALL STOP TIME OUT------ 13:47:36 Final Timeout: patient, procedure, and site verified with staff and physician. All members of the team are in agreement. 13:47:38 Right groin site verified by team. 13:47:42 Maximum allowable Isovue 370 dose 300ml. Physician notified. (300ml for normal creatinines. For patients with creatinine of 1.7 or higher multiply weight(kg) x 5 divided by creatinine.) 13:47:46 Fire Safety Assessment: A--An alcohol-based skin anteseptic being used preoperatively., C--Open oxygen or nitrous oxide is being used., D--An ESU, laser, or fiber-optic light is being used. 13:47:51 Physical assessment completed. ASA score P 2 - A patient with mild systemic disease as per Akhil Marlow MD. 13:47:56 Sedation plan: IV Moderate Sedation Medication:Versed, Fentanyl 13:48:10 Versed 2 mg I.V. was administered by Haley Anderson RN; for sedation; 13:48:16 Fentanyl 50 mcg I.V. was administered by Haley Anderson RN; for sedation; 13:49:29 WHISPER 300cm guide wire ([id number]) opened to sterile field. 13:49:34 DIAGNOSTIC WIRE .035 260cm J wire (923071) opened to sterile field. 13:49:37 Procedure started. 13:49:41 Local anesthetic to right femoral artery with Lidocaine 2% by Akhil Marlow MD.INITIAL ACCESS ONLY 13:50:22 A 6 Fr Short sheath was inserted into the Right Femoral artery 13:50:44 6 Fr HS 2 SH guide catheter was inserted over the wire 13:51:20 Pre PCI Site: Hop[place] mRCA has 80% stenosis. 13:51:54 Whisper wire advanced. 13:52:00 Versed 2 mg I.V. was administered by Haley Anderson RN; for sedation; 13:52:04 Heparin Bolus 5000 units I.V. was administered by Haley Anderson RN; for anticoagulation; verified with Dr. Guthrie 13:52:04 Fentanyl 50 mcg I.V. was administered by Haley Anderson RN; for sedation; 13:52:54 Wire advanced across lesion. 13:54:27 The EMERGE OTW 3.0 x 15 balloon ([id number]) was advanced and then removed because of failure to cross lesion 13:56:46 Versed 2 mg I.V. was administered by Haley Anderson RN; for sedation; 13:56:50 Fentanyl 50 mcg I.V. was administered by Haley Anderson RN; for sedation; 13:57:56 Inflate balloon Inflation number: 1 A EMERGE OTW 2.0 x 12 balloon ([id number]) was prepped and advanced across the Mid RCA 80, then inflated to 8 SHEEBA for 0:30 (min:sec) . 13:58:51 Inflation number: 2 The EMERGE OTW 2.0 x 12 balloon ([id number]) was reinflated across the Mid RCA 80, to 10 SHEEBA for 0:30 (min:sec) . 13:59:07 Balloon removed over the wire. 14:01:02 Versed 2 mg I.V. was administered by Haley Anderson RN; for sedation; 14:01:05 Fentanyl 50 mcg I.V. was administered by Haley Anderson RN; for sedation; 14:01:24 Inflate balloon Inflation number: 3 A EUPHORA 2.5 x 12 Balloon ([id number]) was prepped and advanced across the Mid RCA 80, then inflated to 10 SHEEBA for 0:30 (min:sec) . 14:01:59 Multiple inflations made at 10 Atms. 14:03:36 Balloon removed over the wire. 14:05:31 Inflate balloon Inflation number: 4 A EUPHORA 3.5 x 15 Balloon ([id number]) was prepped and advanced across the Mid RCA 80, then inflated to 14 SHEEBA for 0:30 (min:sec) . 14:06:38 Balloon removed over the wire. 14:09:43 Place stent Inflation Number: 5 A YULIYA OTW 3.5 x 08 stent ([id number]) was prepped and advanced across the Mid RCA 80. The stent was deployed at 14 SHEEBA for 0:45 (min:sec) 0. 14:11:05 Stent catheter was removed intact over wire. 14:13:23 Place stent Inflation Number: 1 A YULIYA RX 3.5 x 22 stent ([id number]) was prepped and advanced across the Prox RCA 80. The stent was deployed at 14 SHEEBA for 0:45 (min:sec) 0. 14:13:55 Stent catheter was removed intact over wire. 14:15:48 EXOSEAL 6Fr (EX600) opened to sterile field. 14:15:57 Wire removed. 14:15:58 Guide catheter removed. 14:16:31 Sheath removed intact; hemostasis achieved with Exoseal to the Right Femoral artery. 14:17:15 Procedure ended.(Physican Out) 14:17:25 Fluoroscopy time 11.30 minutes. 14:18:07 Flurop Dose total: 1161 14:18:07 Fluoroscopy dose: 1161 mGy 14:18:13 Contrast amount:Isovue 370 52ml. 14:18:14 Sharps counted by scrub and verified by R.N. 14:18:19 Insertion/operative site no bleeding no hematoma. 14:18:56 Post-op/insertion site Right Femoral artery dressed using a 4 x 4 and Tegaderm. 14:18:57 Post Procedure Pulses reassessed and unchanged 14:19:00 Post-procedure physical assessment completed. ASA score P 2 - A patient with mild systemic disease as per Akhil Marlow MD. 14:19:03 Post procedure rhythm: unchanged. 14:19:05 Estimated blood loss: 10 ml 14:19:06 Post procedure instruction explained to patient.Patient verbalizes understanding. 14:19:07 Patient needs reinforcement of post procedure teaching. 14:19:14 Procedure type changed to Cath procedure, Diagnostic procedure, LHC, LHC w/Coronaries, PCI procedure, Coronary Stent, Coronary Stent Initial 14:19:15 Procedure and supply charges have been captured, reviewed, submitted and are correct. 14:19:17 Procedure Complication : No complications 14:20:10 Vital chart was stopped 14:20:10 See physician's report for complete and final results. 14:20:54 Report given to Pre/Post Procedure Room. 14:21:01 Patient transfered to Pre/Post Procedure Room with Stretcher. 14:21:03 Procedure ended. 14:21:03 Full Disclosure recording stopped 14:21:07 End room use (Document Last) Intervention Summary Intervention Notes Time ActionType Lesion and Equipment Used Action# Pressure Duration Attributes 13:54:27 Discard EMERGE OTW 3.0 Balloon x 15 balloon ([id number]) 13:57:56 Inflate Mid RCA EMERGE OTW 2.0 1 8 00:30 balloon x 12 balloon ([id number]) 13:58:51 Reinflate Mid RCA EMERGE OTW 2.0 2 10 00:30 balloon x 12 balloon ([id number]) 14:01:24 Inflate Mid RCA EUPHORA 2.5 x 3 10 00:30 balloon 12 Balloon ([id number]) 14:05:31 Inflate Mid RCA EUPHORA 3.5 x 4 14 00:30 balloon 15 Balloon ([id number]) 14:09:43 Place stent Mid RCA YULIYA OTW 3.5 x 5 14 00:45 08 stent ([id number]) 14:13:23 Place stent Prox RCA YULIYA RX 3.5 x 1 14 00:45 22 stent ([id number]) Device Usage Item Name Manufacture Quantity Catalog Number Hospital Part Current Minimal Lot# / Charge Number Stock Stock Serial# Code Tegaderm 4 x 4 3M 1 [id number] [id number] 5 (1626W) ACIST Manifold Acist 1 69742 133198 508300 437794 5 (72830) Medical Systems Inc ACIST Hand Acist 1 39613 022774 139064 600988 5 Control Medical (98686) Systems Inc Medline Cath Medline 1 [id number] 704886 19123 516024 5 Pack ([id number]) ACIST Syringe Acist 1 86596 602684 770962 565440 20 (23752) Medical Systems Inc Bag Decanter Microtek 1 2001S 737776 20765 532611 5 (2001S) Medical Inc. GUIDE 6FR HS Medtronic 1 [id number] 446029 56318 551767 1 II SH catheter ([id number]) SHEATH 6FR Terumo 1 DCZ435 746658 575078 605101 40 [place] (TWA551) INFLATOR Merit Merit 1 MX3512 228815 157013 187752 15 [facility] Medical (BI6666) WHISPER 300cm [place] 1 [id number] 032248 953543 552347 5 guide wire Vascular ([id number]) DIAGNOSTIC St [place] 1 468868 080797 109059 589490 30 WIRE .035 260cm J wire (074241) EMERGE OTW 3.0 Anthon 1 [id number] 592029 906316 371049 5 [id number] x 15 balloon Scientific ([id number]) EMERGE OTW 2.0 Anthon 1 [id number] 541163 576602 273832 5 28251454 x 12 balloon Scientific ([id number]) EUPHORA 2.5 x Medtronic 1 [id number] 422400 626051 342883 5 [id number] 12 Balloon ([id number]) EUPHORA 3.5 x Medtronic 1 [id number] 214980 632410 553862 5 [id number] 15 Balloon ([id number]) YULIYA OTW 3.5 x Medtronic 1 [id number] 742760 2015649 875362 5 [id number] 08 stent ([id number]) YULIYA RX 3.5 x Medtronic 1 [id number] 930848 9066622 107723 5 [id number] 22 stent ([id number]) EXOSEAL 6Fr Cardinal 1 EX600 100811 551042 344949 10 (EX600) Health Signature Audit [place] Stage Time Signature Unsigned Intra-Procedure 05/02/2019 Rohit Castrejon 2:21:24 PM RT(R) Signatures Monitor : Rohit Castrejon RT Signature : Date : Time : [address] [address]
[2019-05-02 11:59] VITALS: BP 130/81; Ht 180.3 cm; Wt 90.9 kg
[2019-05-02 13:00] LABS: CALC OSMOLALITY 281 mosm/kg (275-300); CALCIUM 8.3 mg/dL (8.5-10.1); CARBON DIOXIDE 21.7 mmol/L (21.0-32.0); CHLORIDE - SERUM 101 mmol/L (98-107); CREATININE - SERUM 0.7 mg/dL (0.6-1.3); SODIUM 137 mmol/L (136-145); UREA NITROGEN 12 mg/dL (7-18); eGFR NON AFRICAN AMERICAN > 90 mL/min (90-120)
[2019-05-02 13:01] LABS: GLUCOSE 246 mg/dL (74-106); POTASSIUM - SERUM 4.3 mmol/L (3.5-5.1)
[2019-05-02 13:12] LABS: BASOPHILS 0.3 % (0-2); EOSINOPHILS 1.5 % (0-7); HEMOGLOBIN 14.2 g/dL (13.5-17.5); IMMATURE GRANULOCYTES 0.9 % (0-5); LYMPHOCYTES 18.4 % (15-50); MCH 32.1 pg (26.0-34.0); MCHC 35.5 g/dL (31.0-37.0); MCV 90.3 fL (80.0-100.0); MEAN PLATELET VOLUME 12.4 fL (7.4-10.4); MONOCYTES 9.2 % (2-11); NEUTROPHILS 69.7 % (40-80); PLATELET COUNT 100 10x3/uL (130-400); RBC 4.43 10x6/uL (4.20-6.10); RDW 13.1 % (11.5-14.5); WBC 3.4 10x3/uL (4.8-10.8)
--- NOTE | 2019-05-02 14:33 | NUR ---
PT ARRIVED BY STRETCHER. PLACED ON MONITORS. ASSESSMENT COMPLETED. RIGHT GROIN DRESSING C/D/I. NO S/S OF HEMATOMA NOTED. PT'S FAMILY AT BEDSIDE. DR. BRADEN ROUNDED AND SPOKE WITH PT'S FAMILY.
[2019-05-02] MEDS ORDERED: BAYER CHEWABLE81 MG PO (14:45)
--- NOTE | 2019-05-02 14:50 | NUR ---
RIGHT GROIN DRESSING C/D/I. NO S/S OF HEMATOMA NOTED. RIGHT PEDAL PULSE PALPABLE. VSS. DENIES PAIN/NAUSEA. RESTING COMFORTABLY.
--- NOTE | 2019-05-02 15:20 | NUR ---
RIGHT GROIN DRESSING C/D/I. NO S/S OF HEMATOMA NOTED. RIGHT PEDAL PULSE PALPABLE. VSS. NO NEEDS AT THIS TIME. TOLERATING SIPS OF WATER.
--- NOTE | 2019-05-02 15:50 | NUR ---
RIGHT GROIN DRESSING C/D/I. NO S/S OF HEMATOMA NOTED. VSS. PT RESTING COMFORTABLY. DENIES NAUSEA.
--- NOTE | 2019-05-02 16:20 | NUR ---
RIGHT GROIN DRESSING C/D/I. NO S/S OF HEMATOMA NOTED. VSS. CALL LIGHT WITHIN REACH. NO OTHER NEEDS AT THIS TIME.
--- NOTE | 2019-05-02 17:00 | NUR ---
RIGHT GROIN DRESSING C/D/I. NO S/S OF HEMATOMA NOTED. HEAD OF BED INC TO 30 DEGREES. TOLERATED WELL. SET UP WITH DRINK AND SANDWICH TRAY. VSS.
--- NOTE | 2019-05-02 17:30 | NUR ---
LEFT HAND PIV D/C'D WITH CATH TIP INTACT. PT TOLERATED WELL. RIGHT GROIN DRESSING C/D/I. NO S/S OF HEMATOMA NOTED. PT INSTRUCTED TO GET UP AND DRESSED AT THIS TIME. FAMILY AT BEDSIDE.
--- NOTE | 2019-05-02 17:48 | NUR ---
DISCUSSED DISCHARGE INSTRUCTIONS WITH PT AND PT'S FAMILY. THEY VOICED UNDERSTANDING.
--- NOTE | 2019-05-02 18:00 | NUR ---
PT TAKEN OUT TO VEHICLE BY WHEELCHAIR. NO S/S OF DISTRESS NOTED. ALL BELONGINGS AND PAPERWORK IN HAND.
--- NOTE | 2019-05-03 11:12 | OP ---
PATIENT NAME: INDIA AGGARWAL MEDICAL RECORD: [id number] :54 LOCATION:D.CAT ADMISSION DATE: SURGEON: JOE BRADEN MD DATE OF OPERATION: 05/02/2019 PROCEDURE: PTCA stent to the right coronary artery. DESCRIPTION OF PROCEDURE: After a 6-Bhutanese sheath was placed in right femoral artery, a hockey-stick with side holes was used. Next, the diffusely 80% to 90% stenosis from the proximal portion of vessel down to the mid portion was crossed with a Whisper wire. Pre-deployment balloon was a 3.0 Euphora up and down this area. Pre-deployment stents were placed in following fashion: A 3.5 x 8, 3.5 x 22 were placed. This showed excellent resolution of the diffuse 80% stenosis, no significant residual. LISA flow was 3 throughout the procedure. Heparin was used during the case. Sheath was closed with ExoSeal device. The patient was previously on Plavix. TRANSINT:[id number] Voice Confirmation ID: [id number] DOCUMENT ID: [id number] JOE BRADEN MD at 1112 CC: [id number] DICTATION DATE: 05/02/19 1420 SUBSCRIPTION CREW LEADER: 05/02/19 1550 DEP CLI 05/02/19 [place] [id number] [place] [address]
== END 2019-05-02 18:00 | disposition home or self-care (01) ==
LOC: D.CATH 11:25
PROVIDERS: ATTEND Internal Medicine Interventional Cardiology
DX: I25.10 Atherosclerotic heart disease of native coronary artery without angina pectoris (principal); Z01.812 Encounter for preprocedural laboratory examination